=== PATIENT | female | born 1975 | race Caucasian/White ===

== ENCOUNTER 2017-01-16 17:47 | Outpatient (CLI) | payer OTHER | END 2017-01-16 17:48 | disposition home or self-care (01) | DX: R10.13 Epigastric pain (principal) ==

== ENCOUNTER 2017-04-19 02:37 | Emergency (ER) | payer OTHER ==
[2017-04-19] MEDS ORDERED: SODIUM CHLORIDE 0.9% 1,000 ML IV ONE (03:13)
[2017-04-19 03:21] LABS: BASOPHILS % (AUTO) 0.7 %; EOSINOPHILS # (AUTO) 0.1 10^3/uL (0.0-0.7); EOSINOPHILS % (AUTO) 1.9 %; HCT - HEMATOCRIT 43.1 % (37.0-47.0); LYMPHOCYTES # (AUTO) 3.1 10^3/uL (1.5-3.5); LYMPHOCYTES % (AUTO) 43.6 %; MEAN CORPUSCULAR HEMOGLOBIN 27.6 pg (27.0-31.0); MEAN CORPUSCULAR HGB CONC 32.5 g/dL (32.0-36.0); MEAN CORPUSCULAR VOLUME 84.9 fL (81.0-99.0); MEAN PLATELET VOLUME 9.2 fL (7.9-10.8); MONOCYTES # (AUTO) 0.5 10^3/uL (0.0-1.0); MONOCYTES % (AUTO) 7.2 %; NEUTROPHILS # (AUTO) 3.3 10^3/uL (1.5-6.6); NEUTROPHILS % (AUTO) 46.6 %; NUCLEATED RED BLOOD CELLS AUTO 0.1 /100WBC; RED BLOOD COUNT 5.07 10^6/uL (4.20-5.40); RED CELL DISTRIBUTION WIDTH 12.6 % (12.0-15.0); UNCORRECTED WHITE BLOOD COUNT 7.1 x10^3/uL; WHITE BLOOD COUNT 7.1 x10^3/uL (4.8-10.8)
[2017-04-19 03:29] LABS: ALBUMIN/GLOBULIN RATIO 1.2 (1.0-2.2); BILIRUBIN,TOTAL 0.4 mg/dL (0.2-1.0); CREATININE 0.7 mg/dL (0.4-1.0); MAGNESIUM 2.2 mg/dL (1.7-2.8); PHOSPHORUS 2.6 mg/dL (2.5-4.6); POTASSIUM 3.6 mmol/L (3.5-5.0); TOTAL PROTEIN 7.8 g/dL (6.7-8.2)
--- NOTE | 2017-04-19 03:55 | CT Preliminary Report ---
Exam: CT Head W/O IMPRESSION: Normal head CT. [facility] SITE ID: [id number]
--- NOTE | 2017-04-19 03:58 | CT Report ---
EXAM: CT HEAD EXAM DATE: 04/19/2017 03:34 AM. CLINICAL HISTORY: Syncope, fall, dizziness. COMPARISON: None. TECHNIQUE: Multiaxial CT images were obtained from the foramen magnum to the vertex. IV contrast: Non e. Reformats: Coronal. In accordance with CT protocol optimization, one or more of the following dose reduction techniques w ere utilized for this exam: automated exposure control, adjustment of mA and/or KV based on patient s ize, or use of iterative reconstructive technique. FINDINGS: Parenchyma: No intraparenchymal hemorrhage. No evidence of mass, midline shift, or CT findings of inf arction. [place]-white differentiation is distinct. Extraaxial Spaces: Normal for age. No subdural or epidural collections identified. Ventricles: Normal in size and position. Sinuses: Imaged paranasal sinuses, orbits, and mastoids show no significant abnormality. Bones: No evidence of fracture or calvarial defect. Other: None. IMPRESSION: Normal head CT. [facility] Referring Provider Line: [phone] SITE ID: [id number]
[2017-04-19 04:23] LABS: BILIRUBIN,URINE NEGATIVE (NEGATIVE)
[2017-04-19 04:25] LABS: UA w/ MICROSCOPIC CHARGE YES
[2017-04-19 04:31] LABS: UR CULTURE IF IND NOT INDICATED
[2017-04-19] MEDS ORDERED: SODIUM CHLORIDE FLUSH 0.9% 10 ML SYRINGE IVP ONE (05:59)
--- NOTE | 2017-04-19 06:07 | ED Physician Documentation ---
PD HPI SYNCOPE - Stated complaint Stated Complaint: DIZZY - Chief complaint Chief Complaint: Neuro - History obtained from History obtained from: Patient - History of Present Illness Witnessed: Unwitnessed Timing - onset: How many hours ago (2) Duration: Unknown Preceding symptoms: Diaphoresis, Light headed Associated symptoms: Diaphoresis. No: Seizure, Incontinant of urine, Headache, Vision changes, Chest pain, Palpitations, Dyspnea, Nausea / vomiting Injury occurred: None Similar symptoms before: Has not had sx before Recently seen: Not recently seen - Additional information Additional information: Patient is a 42 year old female with no significant past medical history who is presenting to the emergency department for syncope. Patient states that tonight she woke up from sleeps for some leg cramping. Patient states that she felt a little light headed. Patient proceeded to go to the bathroom. when she was coming back patient got light headed and syncopized. Patient woke up and got back into bed and was very diaphoretic. Patient states that she called out to her daughter who eventually answered then came to the emergency department for evaluation. Upon initial evaluation in the emergency department patient stated she was feeling a bit better but wanted to get checked out. Patient denied any chest pain or shortness of breath. Review of Systems Constitutional: denies: Fever, Chills Eyes: denies: Loss of vision, Decreased vision Ears: denies: Ear pain, Drainage/discharge Nose: denies: Rhinorrhea / runny nose, Foreign Body Throat: denies: Dental pain / toothache, Oral lesions / sores Cardiac: denies: Chest pain / pressure, Palpitations, Calf pain Respiratory: denies: Dyspnea, Cough, Wheezing GI: denies: Abdominal Pain, Nausea, Vomiting : denies: Dysuria, Frequency, Hesitancy, Unable to Void Musculoskeletal: denies: Neck pain, Back pain, Extremity pain, Extremity swelling Neurologic: reports: Generalized weakness, Syncope, LOC. denies: Seizure, Confused, Altered mental status, Headache, Head injury Psychiatric: denies: Depressed, Suicidal Immunocompromised: denies: Immunocompromised PD PAST MEDICAL HISTORY - Past Medical History Neuro: Headache/migraine - Past Surgical History Past Surgical History: Yes General: Appendectomy - Present Medications Home Medications: Ambulatory Orders Medication Instructions Recorded Confirmed Control 1 tab ORAL DAILY 04/19/17 04/19/17 - Allergies Allergies/Adverse Reactions: Allergies Allergy/AdvReac Type Severity Reaction Status Date / Time No Known Drug Allergies Allergy Verified 04/19/17 02:54 - Social History Does the pt smoke?: No Smoking Status: Never smoker Does the pt drink ETOH?: No Does the pt have substance abuse?: No - Immunizations Immunizations are current?: Yes - POLST Patient has POLST: No PD ED PE NORMAL - Vitals Vital signs reviewed: Yes - General General: Alert and oriented X 3, No acute distress - HEENT HEENT: Atraumatic, PERRL, Ears normal, Moist mucous membranes, Pharynx benign - Neck Neck: Supple, no meningeal sign, No JVD - Cardiac Cardiac: RRR, No murmur - Respiratory Respiratory: No respiratory distress, Clear bilaterally - Abdomen Abdomen: Soft, Non tender, Non distended - Derm Derm: Normal color, Warm and dry, No rash - Extremities Extremities: No deformity, No tenderness to palpate, Normal ROM s pain, No edema , No calf tenderness / cord - Neuro Neuro: Alert and oriented X 3, global chief experience officer 2-12 intact, No motor deficit, No sensory deficit, Normal speech - Psych Psych: Normal mood, Normal affect Results - Vitals Vitals: Vital Signs - 24 hr 04/19/17 04/19/17 04/19/17 02:50 03:46 04:19 Temperature 36.5 C Heart Rate 104 H 95 88 Respiratory 18 22 18 Rate Blood Pressure 158/97 H 133/79 H 151/83 H O2 Saturation 96 100 04/19/17 05:44 Temperature 36.9 C Heart Rate 81 Respiratory 16 Rate Blood Pressure 130/77 O2 Saturation 99 Oxygen O2 Source Room air - EKG (time done) 0257 Rate: Rate (enter#) (90) Rhythm: NSR [place]: Normal Intervals: Prolonged QT Ischemia: ST depression, T wave inversion (v3) Compare to prior EKG: Old EKG unavailable - Labs Labs: Laboratory Tests 04/19/17 04/19/17 04/19/17 03:00 03:03 03:03 WBC 7.1 RBC 5.07 Hgb 14.0 Hct 43.1 MCV 84.9 MCH 27.6 MCHC 32.5 RDW 12.6 Plt Count 243 MPV 9.2 Neut # 3.3 Lymph # 3.1 [place] # 0.5 Eos # 0.1 Baso # 0.0 Absolute Nucleated RBC 0.00 Nucleated RBCs 0.1 D-Dimer Sodium 137 Potassium 3.6 Chloride 108 Carbon Dioxide 22 Anion Gap 7.0 BUN 12 Creatinine 0.7 Estimated GFR (MDRD) 91 Glucose 108 H POC Whole Bld Glucose 110 H Calcium 9.0 Phosphorus 2.6 Magnesium 2.2 Total Bilirubin 0.4 AST 15 ALT 15 Alkaline Phosphatase 35 L Troponin I B-Natriuretic Peptide Total Protein 7.8 Albumin 4.3 Globulin 3.5 Albumin/Globulin Ratio 1.2 Lipase 27 TSH Urine Color Urine Clarity Urine pH Ur Specific [place] Urine Protein Urine Glucose (UA) Urine Ketones Urine Occult Blood Urine Nitrite Urine Bilirubin Urine Urobilinogen Ur Leukocyte Esterase Urine RBC Urine WBC Ur Squamous Epith Cells Urine Bacteria Ur Microscopic Review Urine Culture Comments 04/19/17 04/19/17 04/19/17 03:03 03:03 03:03 WBC RBC Hgb Hct MCV MCH MCHC RDW Plt Count MPV Neut # Lymph # [place] # Eos # Baso # Absolute Nucleated RBC Nucleated RBCs D-Dimer Sodium Potassium Chloride Carbon Dioxide Anion Gap BUN Creatinine Estimated GFR (MDRD) Glucose POC Whole Bld Glucose Calcium Phosphorus Magnesium Total Bilirubin AST ALT Alkaline Phosphatase Troponin I < 0.04 B-Natriuretic Peptide 12 Total Protein Albumin Globulin Albumin/Globulin Ratio Lipase TSH 2.62 Urine Color Urine Clarity Urine pH Ur Specific [place] Urine Protein Urine Glucose (UA) Urine Ketones Urine Occult Blood Urine Nitrite Urine Bilirubin Urine Urobilinogen Ur Leukocyte Esterase Urine RBC Urine WBC Ur Squamous Epith Cells Urine Bacteria Ur Microscopic Review Urine Culture Comments 04/19/17 04/19/17 04/19/17 03:03 04:15 06:10 WBC RBC Hgb Hct MCV MCH MCHC RDW Plt Count MPV Neut # Lymph # [place] # Eos # Baso # Absolute Nucleated RBC Nucleated RBCs D-Dimer < 200.0 L Sodium Potassium Chloride Carbon Dioxide Anion Gap BUN Creatinine Estimated GFR (MDRD) Glucose POC Whole Bld Glucose Calcium Phosphorus Magnesium Total Bilirubin AST ALT Alkaline Phosphatase Troponin I < 0.04 B-Natriuretic Peptide Total Protein Albumin Globulin Albumin/Globulin Ratio Lipase TSH Urine Color YELLOW Urine Clarity CLEAR Urine pH 6.0 Ur Specific [place] 1.010 Urine Protein NEGATIVE Urine Glucose (UA) NEGATIVE Urine Ketones NEGATIVE Urine Occult Blood SMALL H Urine Nitrite NEGATIVE Urine Bilirubin NEGATIVE Urine Urobilinogen 0.2 (NORMAL) Ur Leukocyte Esterase TRACE H Urine RBC 6-10 H Urine WBC 4-5 Ur Squamous Epith Cells MANY Squamous H Urine Bacteria Few Ur Microscopic Review INDICATED Urine Culture Comments NOT INDICATED PD MEDICAL DECISION MAKING - ED course Complexity details: reviewed old records, reviewed results, re-evaluated patient , considered differential, d/w patient, d/w family, d/w merchandising consultant ED course: Patient was seen and examined at bedside. iv access was gained and labs were drawn. ekg was performed and had multiple abnormalities. patient's diagnostics were otherwise within normal limits. due to the ekg changes further work-up was necessary. case was discussed with Dr. Fong at [facility] who stated that patient could get two sets and then follow up with him in his office today. arrangements were made. paient was stable for discharge with close outpatient follow up. Departure - Departure Disposition: 01 Home, Self Care Clinical Impression: Syncope Condition: Good Instructions: ED Fainting Unkn Cause Follow-Up: dr ajit [Other] (please follow up with Dr. Fong manufacturing engineering professor today. they should call you, if they do not call you, you should call them.) Comments: Your ekg was abnormal today and it is important for you to follow up with dr. fong today or tomorrow. You should return to the emergency department for chest pain, shortness of breath, new, worsening or uncontrollable symptoms.
[2017-04-19 07:02] VITALS: BP 123/68
== END 2017-04-19 07:00 | disposition home or self-care (01) ==
LOC: ED 02:37
DX: R55 Syncope and collapse (principal); R94.31 Abnormal electrocardiogram [ECG] [EKG]
CPT/HCPCS: 36415; 70450; 80053; 81001; 81003; 83690; 83735; 83880; 84100; 84443; 84484; 85025; 85379; 87086; 93005; 96360; 99284; 99285

== ENCOUNTER 2019-08-02 07:22 | Outpatient (CLI) | payer OTHER ==
--- NOTE | 2019-08-03 05:00 | Ultrasound Report ---
Reason: LUQ ABDOMINAL PAIN Procedure Date: 08/02/2019 Accession Number: [id number] / [id number] Procedure: US - Abdomen Limited CPT Code: Final Report FULL RESULT: EXAM: ABDOMEN ULTRASOUND LIMITED, LEFT UPPER QUADRANT EXAM DATE: 08/02/2019 08:02 AM. CLINICAL HISTORY: Left upper quadrant abdominal pain. COMPARISON: ABDOMEN/PELVIS W/O 01/16/2017 6:00 PM. TECHNIQUE: Real-time scanning was performed with static images obtained. FINDINGS: Liver: In the left liver, there is a 9 mm echogenic nodule, consistent with a benign hemangioma. No gross suspicious mass in the visualized portion of the left liver. Spleen: Normal size at 9 cm in length. Pancreas: Grossly unremarkable where seen. Left kidney: No hydronephrosis, 9 cm in length. Other: None. IMPRESSION: No etiology for left upper quadrant abdominal pain seen by ultrasound. [facility]
== END 2019-08-02 07:23 | disposition home or self-care (01) ==
LOC: DI 07:22
PROVIDERS: ATTEND Nurse Practitioner Family
DX: R10.12 Left upper quadrant pain (principal)
CPT/HCPCS: 76705

== ENCOUNTER 2023-08-01 08:00 | Outpatient (CLI) | payer BC, OTHER | END 2023-08-01 23:59 | disposition home or self-care (01) | LOC: LAB.N 08:00 | PROVIDERS: ATTEND Family Medicine | DX: R30.0 Dysuria (principal) | CPT/HCPCS: 87086 ==

== ENCOUNTER 2023-11-20 02:25 | Emergency (ER) | payer BC ==
--- NOTE | 2023-11-20 02:35 | ED Physician Documentation ---
History of Present Illness - Stated complaint Stated Complaint: ALLERGIC REACTION - History obtained from History obtained from: Patient - Additonal information Additional information: HPI from patient. Patient c/o sudden onset generalized/body-wide pruritis with burning discomfort of skin predominantly feet and hands, onset approximately 1 AM this morning waking her from sleep. She had burning dysuria and "bladder spasms" (per patient) which she says are c/w previous UTIs and thus she took a dose of macrobid from old prescription. She went to bed and woke within 45 minutes-1 hour later with the pruritis. She has had nitrofurantoin many times before (including from the same bottle; ie - same med, same energy broker) before without adverse reaction. Denies dyspnea, cough, denies sensation of throat or lips swelling/closing, denies tongue swelling. Denies chest tightness. Denies lightheadedness. Review of Systems Constitutional: denies: Fever, Chills, Sweats Cardiac: reports: Reviewed and negative Respiratory: reports: Reviewed and negative GI: reports: Reviewed and negative Skin: reports: Rash PD PAST MEDICAL HISTORY - Past Medical History Past Medical History: No - Past Surgical History Past Surgical History: Yes General: Appendectomy - Present Medications Home Medications: Ambulatory Orders Medication Instructions Recorded Confirmed Control 1 tab ORAL DAILY 04/19/17 11/20/23 Amox/Clav 875/125 [Augmentin 1 tablet PO Q12H 7 Days #14 tablet 11/20/23 875/125 Tab] EPINEPHrine [Epinephrine] 0.3 mg IJ ONCE PRN #2 each 11/20/23 hydrOXYzine HCL [Hydroxyzine HCl] 25 mg PO QID PRN #20 tablet 11/20/23 predniSONE [Deltasone] 40 mg PO DAILY 3 Days #6 tablet 11/20/23 - Allergies Allergies/Adverse Reactions: Allergies Allergy/AdvReac Type Severity Reaction Status Date / Time nitrofurantoin Allergy Anaphylaxis Verified 11/20/23 03:04 - Social History Does the pt smoke?: No Smoking Status: Never smoker Does the pt drink ETOH?: No Does the pt have substance abuse?: No - Immunizations Immunizations are current?: Yes - POLST Patient has POLST: No PD ED PE NORMAL - Vitals Vital signs reviewed: Yes - General General: Alert and oriented X 3, No acute distress (anxious, frequently scratching both feet), Well developed/nourished - Cardiac Cardiac: RRR, No murmur - Respiratory Respiratory: No respiratory distress, Clear bilaterally - Abdomen Abdomen: Soft, Non tender PD ED PE EXPANDED - Derm SKin visual: 1 - rash (mostly confluent raised, blanching erythema) 2 - rash (raised, blanching confluenct erythema) Results - Vitals Vitals: Oxygen O2 Source Room air - Labs Labs: Microbiology 11/20/23 05:07 Urine Culture - Final Urine,Clean Catch 10-50,000 COLONIES/ML Polymicrobial growth including potential pathogens. This is suggestive of skin or other contamination. Laboratory Tests 11/20/23 05:07 Urine Color BROWN Urine Clarity CLEAR Urine pH 5.5 Ur Specific [place] >=1.030 H Urine Protein 30 H Urine Glucose (UA) 100 H Urine Ketones TRACE Urine Occult Blood TRACE-INTA Urine Nitrite POSITIVE H Urine Bilirubin NEGATIVE Urine Urobilinogen 1 (NORMAL) Ur Leukocyte Esterase TRACE H Urine RBC 0-5 Urine WBC 6-10 H Ur Squamous Epith Cells FEW Squamous Urine Bacteria Rare Urine Casts 0-2 Hyaline Casts Ur Microscopic Review INDICATED Urine Culture Comments INDICATED PD Medical Decision Making - ED course ED course: Presents with diffuse urticaria, suspect allergic reaction although timing would be odd if it was the macrobid, and also would be atypical that she has had this medication before without adverse reaction. Focus is on symptom control. She is given 0.3mg IM epinephrine, 25mg IM vistaril, 25mg PO pepcid, and 60mg PO prednisone. After sufficient time for these medications to have had time to take effect, she is reevaluated. She is asleep and in NAD/no longer constantly scratching at her extremities and there is near-resolution of the erythema on her extremities, but some faint yet confluent erythema on her abdomen. At this point, she is safe and appropriate for d/c home. Epi-pens, vistaril, 40mg QD prednisone x 3 days are all e-prescribed to her pharmacy of choice. Return precautions reviewed. Departure - Departure Disposition: Home, Self Care Clinical Impression: Allergic reaction Qualifiers: Encounter type: initial encounter Qualified Code(s): T78.40XA - Allergy, unspecified, initial encounter Condition: Good Instructions: ED Allergic Reaction General Other Prescriptions: Amox/Clav 875/125 [Augmentin 875/125 Tab] 1 tablet PO Q12H 7 Days #14 tablet predniSONE [Deltasone] 40 mg PO DAILY 3 Days #6 tablet EPINEPHrine [Epinephrine] 0.3 mg IJ ONCE PRN #2 each PRN Reason: Anaphylaxis hydrOXYzine HCL [Hydroxyzine HCl] 25 mg PO QID PRN #20 tablet PRN Reason: Itching Comments: I have electronically submitted prescriptions for hydroxyzine (anti-histamine), prednisone (steroid), epi-pen (epinephrine auto-injector to be used for severe allergic reaction only), and Augmentin (antibiotic) to the [facility] pharmacy in [place]. You were treated for allergic reaction tonight. As we discussed, it is unusual to have an allergic reaction to the medication (nitrofurantoin) that you have taken many times before without adverse reaction. However, considering the symptoms started shortly after taking the dose of the nitrofurantoin tonight, I recommend not taking nitrofurantoin again (presume allergy to this medication, particularly considering there are many alternative antibiotics for UTI). You were given the first dose of the antibiotic (Augmentin) in the emergency department for a presumed urinary tract infection (you are unable to provide a urine sample, but based on your frequent urinary tract infections and resulting familiarity with the symptoms of UTI, it is reasonable to treat you empirically/presumptively). If you have a recurrence of your (allergic reaction) symptoms in the future without exposure to an obvious trigger, you might benefit from referral to an asl interpreter for testing to try to determine what is causing the symptoms. Forms: PCP List Discharge Date/Time: 11/20/23 05:16
[2023-11-20] MEDS: hydrOXYzine 50 MG/ML VIAL IM STA (03:10)
[2023-11-20] MEDS: predniSONE 20 MG TABLET PO STA (03:11)
[2023-11-20] MEDS: FAMOTIDINE 20 MG TABLET PO STA (03:11)
[2023-11-20] MEDS: EPINEPHrine 1 MG/ML AMP IM STA (03:11)
[2023-11-20 05:05] VITALS: BP 105/66; O2SAT 97
[2023-11-20] MEDS: AMOX/CLAV 875 MG/125 MG TABLET PO STA (05:15)
[2023-11-20 05:43] LABS: BILIRUBIN,URINE NEGATIVE (NEGATIVE); GLUCOSE, URINE (UA) 100 mg/dL (NEGATIVE); KETONES,URINE (UA) TRACE mg/dL (NEGATIVE); LEUKOCYTE ESTERASE, URINE TRACE (NEGATIVE); NITRITE,URINE POSITIVE (NEGATIVE); OCCULT BLOOD,URINE TRACE-INTA (NEGATIVE); PH,URINE 5.5 PH (5.0-7.5); PROTEIN,URINE 30 mg/dL (NEGATIVE); UROBILINOGEN,URINE 1 (NORMAL) E.U./dL (NORMAL)
[2023-11-20 06:00] LABS: CLARITY,URINE CLEAR (CLEAR); RBC,URINE 0-5 /HPF (0-5); SQUAMOUS EPITHELIAL CELL,UR FEW Squamous (<= Few)
[2023-11-20 06:01] LABS: BACTERIA,URINE Rare /HPF (None Seen); CASTS, URINE 0-2 Hyaline Casts /LPF
== END 2023-11-20 05:16 | disposition home or self-care (01) ==
LOC: ED 02:25
DX: T78.40XA Allergy, unspecified, initial encounter (principal)
CPT/HCPCS: 81001; 87086; 96372; 99283; A9270; J7512; 81003